=== PATIENT | female | born 2000 | race African-American/Black ===

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

== ENCOUNTER 2019-06-06 14:24 | Emergency (ER) | payer MEDICAID ==
[2019-06-06] MEDS ORDERED: Ketorolac 30 MG/ML SDV IVPUSH ONE (14:49)
[2019-06-06] MEDS ORDERED: Sodium Chloride 0.9% 1,000 ML IV ONE (14:49)
[2019-06-06] MEDS ORDERED: Ondansetron 4 MG/2 ML SDV IVPUSH ONE (14:49)
[2019-06-06] MEDS: Sodium Chloride 0.9% 10 ML Syringe FLUSH PRN ×2 (15:00→15:15)
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
[2019-06-06] MEDS ORDERED: Iopamidol 755 Mg/ML 100 ML Bottle IV ONE ×2 (15:10→15:31)
[2019-06-06 16:29] VITALS: BP 104/56; PULSE 87
== END 2019-06-06 16:47 | disposition home or self-care (01) ==
LOC: FB.ED 14:24
DX: N94.0 Mittelschmerz (principal); K59.00 Constipation, unspecified; J45.909 Unspecified asthma, uncomplicated; K21.9 Gastro-esophageal reflux disease without esophagitis; F32.9 Major depressive disorder, single episode, unspecified; Z88.8 Allergy status to other drugs, medicaments and biological substances; Z91.018 Allergy to other foods; Z91.048 Other nonmedicinal substance allergy status; Z91.09 Other allergy status, other than to drugs and biological substances; Z79.51 Long term (current) use of inhaled steroids
CPT/HCPCS: 36415; 74177; 80053; 81001; 81025; 82150; 83690; 85025; 96365; 96375; 99284; J1885; J2405; J7030; Q9967